=== PATIENT | female | born 1945 | race Caucasian/White ===

== ENCOUNTER 2021-03-03 12:01 | Emergency (ER) | payer OTHER ==
[~2021-03-03] VITALS: Ht 165.1 cm; Wt 74.8 kg
[2021-03-03 12:11] VITALS: BP_SYST 129
[2021-03-03] MEDS ORDERED: BACITRACIN 1 GM OINT TP ONE (12:45)
[2021-03-03] MEDS ORDERED: LIDOCAINE/EPI 1% 1:100000 20 ML VIAL INJ ONE (12:45)
[2021-03-03 14:40] VITALS: BP_SYST 129
== END 2021-03-03 14:40 | disposition home or self-care (01) ==
LOC: SED 12:01
DX: S01.112A Laceration without foreign body of left eyelid and periocular area, initial encounter (principal); S63.599A Other specified sprain of unspecified wrist, initial encounter; S80.211A Abrasion, right knee, initial encounter; I10 Essential (primary) hypertension; E11.9 Type 2 diabetes mellitus without complications; W18.39XA Other fall on same level, initial encounter; Y93.89 Activity, other specified; Y92.89 Other specified places as the place of occurrence of the external cause; Y99.8 Other external cause status
CPT/HCPCS: 99283

== ENCOUNTER 2022-12-08 08:16 | Inpatient (IN) | payer OTHER ==
[~2022-12-08] VITALS: Ht 162.6 cm; Wt 73.9 kg
[2022-12-08] MEDS ORDERED: KETOROLAC TROMETHAMINE 30 MG VIAL IVP ONE (08:45)
[2022-12-08] MEDS ORDERED: NACL 0.9% 1,000 ML IV ONE (08:45)
[2022-12-08 08:50] VITALS: BP_SYST 176
[2022-12-08 09:17] LABS: HEMATOCRIT 39.9 % (36-48); HEMOGLOBIN 13.3 g/dL (12.0-16.0); LYMPHOCYTES # (AUTO) 0.3 K/uL (1.0-5.5); LYMPHOCYTES % (AUTO) 1.6 % (20.5-51.5); MEAN CORPUSCULAR HEMOGLOBIN 31 pg (27-31); MEAN CORPUSCULAR HGB CONC 33 % (32-36); MEAN CORPUSCULAR VOLUME 93 fL (79.0-98.0); MONOCYTES # (AUTO) 0.7 K/uL (0.0-1.0); MONOCYTES % (AUTO) 4.3 % (1.7-9.3); NEUTROPHILS # (AUTO) 16.1 K/uL (1.8-7.7); NEUTROPHILS % (AUTO) 94.1 % (40.0-70.0); PLATELET COUNT (AUTO) 150 K/uL (130-430); RED CELL DISTRIBUTION WIDTH 13.6 % (9.0-15.0); WHITE BLOOD COUNT (AUTO) 17.1 K/uL (4.8-10.8)
[2022-12-08 09:31] LABS: ANION GAP 9 (5-15); CALCIUM 9.4 mg/dL (8.4-11.0); CHLORIDE 105 mmol/L (98-107); CREATININE 1.19 mg/dL (0.55-1.30); GLUCOSE 146 mg/dL (70-99); UREA NITROGEN, BLOOD 15 mg/dL (8-21)
[2022-12-08 09:36] LABS: ALANINE AMINOTRANSFERASE 113 U/L (12-78); ALBUMIN 3.5 g/dL (3.4-4.8); ASPARTATE AMINOTRANSFERASE 218 U/L (10-37); LIPASE 11148 U/L (73-393); TOTAL BILIRUBIN 2.6 mg/dL (0.0-1.0)
[2022-12-08] MEDS ORDERED: ONDANSETRON HCL 4 MG/2 ML VIAL IVP ONE (09:45)
[2022-12-08] MEDS ORDERED: PIPERACILLIN/TAZO 3.375 GM in NS 50 ML IV ONE (10:45)
[2022-12-08] MEDS ORDERED: ONDANSETRON HCL 4 MG/2 ML VIAL IVP PRN (11:30)
[2022-12-08] MEDS ORDERED: MORPHINE 4 MG INJ. 4 MG/ML VIAL IVP PRN (11:30)
[2022-12-08] MEDS ORDERED: 0.45% NACL 1,000 ML IV SCH (11:30)
[2022-12-08] MEDS ORDERED: PIPERACILLIN/TAZOBACTAM 3.375 GM/VIAL (ZOSYN) IV ONE (11:33)
[2022-12-08] MEDS ORDERED: DEXTROSE 50% JECT 50 ML DISP.SYRIN IVP PRN (11:45)
[2022-12-08] MEDS ORDERED: D5W 1,000 ML IV PRN (11:45)
[2022-12-08] MEDS ORDERED: GLUCOSE (DEXTROSE) ORAL GEL -Adults PO PRN (11:45)
[2022-12-08] MEDS ORDERED: POTASSIUM CHLORIDE 20 MEQ/PKT PACKET PO ONE (11:45)
[2022-12-08] MEDS ORDERED: [UNRECOGNIZED DRUG - OTHER] PO (11:55)
[2022-12-08] MEDS ORDERED: OLMESARTAN PO (11:55)
[2022-12-08] MEDS ORDERED: PRO40 PO (11:55)
[2022-12-08] MEDS ORDERED: GLIP5TAB26 PO (11:55)
[2022-12-08] MEDS ORDERED: SERT-436 PO (12:00)
[2022-12-08] MEDS ORDERED: LIP40 PO (12:00)
[2022-12-08] MEDS ORDERED: VERA120C2 PO (12:00)
[2022-12-08] MEDS: LR 1,000 ML IV SCH ×2 (14:11→20:45)
[2022-12-08] MEDS ORDERED: POTASSIUM CHLORIDE 20 MEQ/PKT PACKET ONE (14:11)
[2022-12-08 14:40] LABS: BILIRUBIN,URINE 2+ (NEGATIVE); BLOOD, URINE 1+ (NEGATIVE); CLARITY/URINE CLEAR (CLEAR); GLUCOSE,URINE NEGATIVE (NEGATIVE); KETONES,URINE TRACE (NEGATIVE); LEUKOCYTE ESTERASE ,URINE 1+ (NEGATIVE); NITRITE, URINE NEGATIVE (NEGATIVE); PH,URINE 5.5 (5.0-8.0); PROTEIN URINE TRACE (NEGATIVE)
[2022-12-08 14:55] LABS: COLOR,URINE YELLOW (YELLOW)
[2022-12-08 15:04] LABS: BACTERIA,URINE FEW /HPF (None Seen); YEAST,URINE Rare /HPF (None Seen)
[2022-12-08 17:14] VITALS: BP_SYST 135
[2022-12-08 17:23] VITALS: BP_SYST 135
[2022-12-08] MEDS: PIPERACILLIN/TAZO 3.375/DEX-IS 50 ML IV SCH (17:41)
[2022-12-08 20:00] VITALS: BP_SYST 113
[2022-12-08] MEDS: INSULIN REGULAR, HUMAN 100 UNITS/ML, 3 ML VIAL (humuLIN R) SUBCUT PRN (21:10)
[2022-12-09] MEDS: PIPERACILLIN/TAZO 3.375/DEX-IS 50 ML IV SCH ×5 (00:06→23:37)
[2022-12-09] MEDS: LR 1,000 ML IV SCH ×3 (00:25→22:31)
[2022-12-09 00:34] VITALS: BP_SYST 135
[2022-12-09 07:07] LABS: BASOPHILS % (AUTO) 0.3 % (0.0-2.0); EOSINOPHILS # (AUTO) 0.1 K/uL (0.0-0.4); EOSINOPHILS % (AUTO) 0.7 % (0.0-4.0); HEMATOCRIT 32.1 % (36-48); HEMOGLOBIN 10.8 g/dL (12.0-16.0); LYMPHOCYTES # (AUTO) 0.9 K/uL (1.0-5.5); LYMPHOCYTES % (AUTO) 6.2 % (20.5-51.5); MEAN CORPUSCULAR HEMOGLOBIN 31 pg (27-31); MEAN CORPUSCULAR HGB CONC 34 % (32-36); MEAN CORPUSCULAR VOLUME 92 fL (79.0-98.0); MONOCYTES # (AUTO) 0.7 K/uL (0.0-1.0); MONOCYTES % (AUTO) 5.1 % (1.7-9.3); NEUTROPHILS # (AUTO) 12.6 K/uL (1.8-7.7); NEUTROPHILS % (AUTO) 87.7 % (40.0-70.0); PLATELET COUNT (AUTO) 132 K/uL (130-430); RED BLOOD CELL COUNT(AUTO) 3.47 MIL/uL (4.2-6.2); RED CELL DISTRIBUTION WIDTH 13.9 % (9.0-15.0); WHITE BLOOD COUNT (AUTO) 14.4 K/uL (4.8-10.8)
[2022-12-09 07:32] LABS: ANION GAP 10 (5-15); CHLORIDE 108 mmol/L (98-107); GLUCOSE 110 mg/dL (70-99)
[2022-12-09 07:33] LABS: CALCIUM 8.1 mg/dL (8.4-11.0); CREATININE 1.28 mg/dL (0.55-1.30); UREA NITROGEN, BLOOD 22 mg/dL (8-21)
[2022-12-09 07:38] LABS: ALANINE AMINOTRANSFERASE 121 U/L (12-78); ALBUMIN 2.5 g/dL (3.4-4.8); ASPARTATE AMINOTRANSFERASE 110 U/L (10-37); TOTAL BILIRUBIN 3.4 mg/dL (0.0-1.0)
[2022-12-09 08:00] VITALS: BP_SYST 126
[2022-12-09 09:06] LABS: LIPASE 11793 U/L (73-393)
[2022-12-09 11:25] VITALS: BP_SYST 141
[2022-12-09 16:05] VITALS: BP_SYST 145
[2022-12-09 20:00] VITALS: BP_SYST 148
[2022-12-10] VITALS: BP_SYST 152
[2022-12-10] MEDS: LR 1,000 ML IV SCH ×3 (05:29→20:45)
[2022-12-10] MEDS: PIPERACILLIN/TAZO 3.375/DEX-IS 50 ML IV SCH ×4 (06:59→23:49)
[2022-12-10 07:00] LABS: BASOPHILS % (AUTO) 0.5 % (0.0-2.0); EOSINOPHILS # (AUTO) 0.5 K/uL (0.0-0.4); EOSINOPHILS % (AUTO) 4.9 % (0.0-4.0); HEMATOCRIT 33.8 % (36-48); HEMOGLOBIN 11.6 g/dL (12.0-16.0); LYMPHOCYTES # (AUTO) 0.9 K/uL (1.0-5.5); LYMPHOCYTES % (AUTO) 8.9 % (20.5-51.5); MEAN CORPUSCULAR HEMOGLOBIN 32 pg (27-31); MEAN CORPUSCULAR HGB CONC 34 % (32-36); MEAN CORPUSCULAR VOLUME 92 fL (79.0-98.0); MONOCYTES # (AUTO) 0.6 K/uL (0.0-1.0); MONOCYTES % (AUTO) 5.8 % (1.7-9.3); NEUTROPHILS # (AUTO) 7.7 K/uL (1.8-7.7); NEUTROPHILS % (AUTO) 79.9 % (40.0-70.0); PLATELET COUNT (AUTO) 125 K/uL (130-430); RED BLOOD CELL COUNT(AUTO) 3.67 MIL/uL (4.2-6.2); RED CELL DISTRIBUTION WIDTH 13.8 % (9.0-15.0); WHITE BLOOD COUNT (AUTO) 9.6 K/uL (4.8-10.8)
[2022-12-10 07:49] LABS: ALANINE AMINOTRANSFERASE 83 U/L (12-78); ALBUMIN 2.4 g/dL (3.4-4.8); ANION GAP 8 (5-15); ASPARTATE AMINOTRANSFERASE 60 U/L (10-37); CALCIUM 8.5 mg/dL (8.4-11.0); CHLORIDE 107 mmol/L (98-107); CREATININE 1.14 mg/dL (0.55-1.30); GLUCOSE 96 mg/dL (70-99); TOTAL BILIRUBIN 1.3 mg/dL (0.0-1.0); UREA NITROGEN, BLOOD 16 mg/dL (8-21)
[2022-12-10 08:00] VITALS: BP_SYST 140
[2022-12-10 08:55] LABS: LIPASE 7558 U/L (73-393)
[2022-12-10] MEDS ORDERED: POTASSIUM CHLORIDE 20 MEQ/PKT PACKET PO ONE (10:45)
[2022-12-10 12:34] VITALS: BP_SYST 131
[2022-12-10 16:55] VITALS: BP_SYST 131
[2022-12-10] MEDS: INSULIN REGULAR, HUMAN 100 UNITS/ML, 3 ML VIAL (humuLIN R) SUBCUT PRN (17:14)
[2022-12-10 20:00] VITALS: BP_SYST 145
[2022-12-11] VITALS: BP_SYST 130
[2022-12-11] MEDS: PIPERACILLIN/TAZO 3.375/DEX-IS 50 ML IV SCH ×2 (04:28→11:04)
[2022-12-11] MEDS: LR 1,000 ML IV SCH ×2 (04:29→14:19)
[2022-12-11 06:28] LABS: BASOPHILS % (AUTO) 0.4 % (0.0-2.0); EOSINOPHILS # (AUTO) 0.5 K/uL (0.0-0.4); EOSINOPHILS % (AUTO) 6.1 % (0.0-4.0); HEMATOCRIT 33.2 % (36-48); HEMOGLOBIN 11.3 g/dL (12.0-16.0); LYMPHOCYTES % (AUTO) 11.5 % (20.5-51.5); MEAN CORPUSCULAR HEMOGLOBIN 32 pg (27-31); MEAN CORPUSCULAR HGB CONC 34 % (32-36); MEAN CORPUSCULAR VOLUME 92 fL (79.0-98.0); MONOCYTES # (AUTO) 0.6 K/uL (0.0-1.0); MONOCYTES % (AUTO) 6.4 % (1.7-9.3); NEUTROPHILS # (AUTO) 6.6 K/uL (1.8-7.7); NEUTROPHILS % (AUTO) 75.6 % (40.0-70.0); PLATELET COUNT (AUTO) 134 K/uL (130-430); RED CELL DISTRIBUTION WIDTH 13.6 % (9.0-15.0); WHITE BLOOD COUNT (AUTO) 8.8 K/uL (4.8-10.8)
[2022-12-11 06:47] LABS: ALANINE AMINOTRANSFERASE 55 U/L (12-78); ALBUMIN 2.4 g/dL (3.4-4.8); ANION GAP 7 (5-15); CALCIUM 8.8 mg/dL (8.4-11.0); CHLORIDE 106 mmol/L (98-107); CREATININE 1.14 mg/dL (0.55-1.30); GLUCOSE 141 mg/dL (70-99); TOTAL BILIRUBIN 0.8 mg/dL (0.0-1.0); UREA NITROGEN, BLOOD 16 mg/dL (8-21)
[2022-12-11 08:00] VITALS: BP_SYST 178
[2022-12-11 09:19] LABS: ASPARTATE AMINOTRANSFERASE 29 U/L (10-37); LIPASE 4941 U/L (73-393)
[2022-12-11 11:37] VITALS: BP_SYST 158
[2022-12-11 12:00] VITALS: BP_SYST 158
[2022-12-11 16:40] VITALS: BP_SYST 123
== END 2022-12-11 18:40 | disposition home or self-care (01) | DRG 871 ==
LOC: SED 08:16 → SMU 11:30 → STU 15:31
PROVIDERS: ADMIT Family Medicine; ATTEND Family Medicine
DX: A41.9 Sepsis, unspecified organism (principal); K85.90 Acute pancreatitis without necrosis or infection, unspecified; N39.0 Urinary tract infection, site not specified; E11.9 Type 2 diabetes mellitus without complications; I10 Essential (primary) hypertension; Z20.822 Contact with and (suspected) exposure to COVID-19; Z85.3 Personal history of malignant neoplasm of breast; Z80.0 Family history of malignant neoplasm of digestive organs; Z80.41 Family history of malignant neoplasm of ovary; Z80.51 Family history of malignant neoplasm of kidney; Z90.13 Acquired absence of bilateral breasts and nipples; Z90.5 Acquired absence of kidney; Z85.528 Personal history of other malignant neoplasm of kidney; Z88.8 Allergy status to other drugs, medicaments and biological substances
CPT/HCPCS: 36415; 74181; 76376; 76705; 80053; 81000; 82787; 83605; 83615; 83690; 84478; 85025; 86038; 87040; 87045-TC; 87086; 89055; 96361; 96365; 96375; 99285; G0378; J1815; J1885; J2270; J2405; J2543